=== PATIENT | female | born 1990 | race Caucasian/White ===

== ENCOUNTER 2020-04-25 19:50 | Emergency (ER) | payer MEDICAID ==
[~2020-04-25] VITALS: Ht 160 cm; Wt 79.4 kg
[2020-04-25 20:00] VITALS: BP_SYST 114
[2020-04-25] MEDS ORDERED: SOM350 PO (20:59)
[2020-04-25] MEDS ORDERED: IBUP-1969 PO (20:59)
[2020-04-25 21:20] VITALS: BP_SYST 114
== END 2020-04-25 21:20 | disposition home or self-care (01) ==
LOC: SED 19:50
DX: S13.4XXA Sprain of ligaments of cervical spine, initial encounter (principal); S80.12XA Contusion of left lower leg, initial encounter; S50.02XA Contusion of left elbow, initial encounter; V49.9XXA Car occupant (driver) (passenger) injured in unspecified traffic accident, initial encounter; Y93.89 Activity, other specified; Y92.413 State road as the place of occurrence of the external cause; Y99.8 Other external cause status
CPT/HCPCS: 71045; 72040-TC; 73590-TC; 99284